=== PATIENT | female | born 2000 | race Hispanic/Latino ===

== ENCOUNTER 2024-06-28 13:23 | Emergency (ER) | payer SELFPAY ==
[~2024-06-28] VITALS: Ht 154.9 cm; Wt 51.3 kg
[~2024-06-28 13:23] MED LIST: PRED20TA3 PO
[2024-06-28 15:07] VITALS: BP 132/88; PULSE 88; RESP 20; TEMP 102.1; O2SAT 100
[2024-06-28 15:13] LABS: SARS-CoV-2, RNA, NAAT NEGATIVE SARS CoV-2 (NEGATIVE)
[2024-06-28] MEDS: acetaMINOPHEN WITH coDEINE 1 TAB TAB PO ONE (15:18)
[2024-06-28 15:25] LABS: RAPID GROUP A STREP negative (NEGATIVE)
--- NOTE | 2024-06-28 15:55 | ERN ---
General Chief Complaint: Headache Stated Complaint: EARACHE, HEADACHE, SORE THROAT Time Seen by MD: 13:31 History of Present Illness Initial Comments 23-year-old female, otherwise healthy, who presents for flu-like illness. She reports body aches, sore throat, cough, rhinorrhea and congestion x3 days. She has been taking ibuprofen and Tylenol. Multiple sick contacts, she works in his school Allergies: Coded Allergies: amoxicillin (Unverified Allergy, Unknown, 06/28/24) Home Meds Active Scripts Prednisone (Prednisone) 20 Mg Tablet, 40 MG PO DAILY for 5 Days, #10 TAB 0 Refills Prov:GERALDINE VALADEZ MD 02/19/22 Past Medical History Past Medical History: No Pertinent History Past Surgical History: None Social History Social History: Other Female( History) LMP: Jun 25, 2024 ROS Dictation Viral URI type symptoms. CONSTITUTIONAL: Fevers HEAD/FACE: No signs of trauma. EENT: No eye pain, no blurred vision, no tearing, no double vision, no ear pain, no ear discharge, no nose pain, no nasal congestion, no throat pain, no throat swelling, no mouth pain. RESPIRATORY: Cough congestion rhinorrhea CARDIOVASCULAR: No chest pain, no edema, no palpitations, no syncope. GASTROINTESTINAL/ABDOMINAL: No abdominal pain, no constipation, no diarrhea, no nausea, no vomiting. GENITOURINARY: No abnormal discharge, no dysuria, no frequent urination, no hematuria. No complaints of pain in the genitals. MUSCULOSKELETAL: No back pain, no gout, no joint pain, no joint swelling, no muscle pain, no muscle stiffness, no neck pain. INTEGUMENTARY: No change in color, no change in hair/nails, no dryness, no lesion, no lumps, no rash. NEUROLOGICAL/PSYCH: No anxiety, not depressed, no emotional problem, no headache, no numbness, no pre-existing deficit, no history of seizures, no tremors, no weakness. HEMATOLOGIC/LYMPHATIC: Not anemic, no history of blood clots, no apparent bleeding, no bruising, glands not swollen. All Systems Negative, Except as Noted. Physical Exam Physical Exam Dictation VITAL SIGNS: Reviewed. GENERAL APPEARANCE: Alert, oriented x3, no acute distres HEAD AND FACE: Non-traumatic. EYES: PERRL, pink conjunctivas, eyelid no trauma, anterior chamber clear. EARS: Pinnas intact and no signs of trauma or erythema. Ear canals clear and no discharge. TMs no erythema. NOSE: No discharge, no bleeding. OROPHARYNX: Mouth normal, teeth no caries, tongue pink. Pharynx clear, no erythema. Tonsils no exudates, no abscesses noted. Mucous membrane moist. NECK: Supple, non-tender, no thyromegaly, no masses, no JVD, no bruits. BREAST: Deferred. CHEST: No tenderness, no crepitus, no paradoxical movement, no retractions. LUNGS: Clear, well-ventilated, symmetric, no rales, no wheezing, no rhonchi, no stridor, good breath sounds bilaterally. HEART: Regular rate, regular rhythm, no murmur, no gallops. VASCULAR: No peripheral edema. ABDOMEN: Soft, positive bowel sounds, nondistended, no guarding, nontender, no rebound, no masses no hepatomegaly, no splenomegaly, no Medrano's sign, no hernias. RECTAL: Deferred. GENITAL: Deferred. NEUROLOGICAL: Normal speech, gross motor function intact, gross sensory function intact. MUSCULOSKELETAL: Neck nontender, full range of motion, back nontender, full range of motion. EXTREMITIES: Nontender, full range of motion. SKIN: Color pink, dry, no turgor, no rash, no lacerations, no abrasions, no contusions. LYMPHATICS: Deferred. Results Laboratory and Microbiology Lab and Micro Result Laboratory Tests Test 06/28/24 14:20 SARS-CoV-2, RNA, NAAT NEGATIVE SARS CoV-2 Group A Streptococcus Rapid negative (NEGATIVE) ED Course Orders Procedure Category Date Status Time Covid Rna Naat LAB 06/28/24 In Process 14:19 Influenza Type A & B, LAB 06/28/24 In Process Rapid 14:19 Rapid (Group A Strep) LAB 06/28/24 In Process 14:19 Acetaminophen With PHA 06/28/24 Complete Codeine (Tylenol-Code 15:30 Dexamethasone 4mg/Ml PHA 06/28/24 Transmitted 1ml Vial (Dexametha 16:00 Current Medications Medications (Trade) Dose Ordered Sig/Jumana Route PRN Reason Start Time Stop Time Status Last Admin Dose Admin Acetaminophen/ Codeine Phosphate (TYLenol-coDEINE TAB) 1 tab ONCE ONCE PO 06/28/24 15:30 06/28/24 15:31 DC 06/28/24 15:18 Vital Signs Date Time Temp Pulse Resp B/P (MAP) Pulse Ox O2 Delivery O2 Flow Rate FiO2 06/28/24 15:07 102.0 88 20 132/88 100 Room Air* 0 21 06/28/24 14:15 101.1 103 18 137/94 99 Room Air 0 DX & DISP Disposition: Discharge Departure Impression: Primary Impression: Viral URI Condition: Stable Additional Instructions: Your symptoms are consistent with a viral upper respiratory infection, or the common cold. This does not require antibiotics. Alternate Tylenol (650 mg) and ibuprofen (600 mg) every4 hours for fever. You received a dose of steroids here in the ER. This is an anti-inflammatory medicine in the lasted about48 hours in your system. Drink plenty of liquids. Gatorade as good choice. Eat a healthy diet of fruits and vegetables for good nutrition while you are healing. Please follow up with your primary doctor in48 hours for re-evaluation if you continue with symptoms. Please return to the emergency department if you have any concerns. Referrals: SELF,REFERRAL (PCP) JASS EMANUEL DO Jun 28, 2024 15:55
[2024-06-28] MEDS: dexaMETHasone SOD PHOSPHATE 4 MG/ML 1ML VIAL IM ONE (16:00)
[2024-06-28 16:03] LABS: INFLUENZA TYPE A Negative For Type A (NEGATIVE); INFLUENZA TYPE B Negative For Type B (NEGATIVE)
== END 2024-06-28 16:05 | disposition home or self-care (01) ==
LOC: EDH 13:23
DX: J06.9 Acute upper respiratory infection, unspecified (principal); B97.89 Other viral agents as the cause of diseases classified elsewhere; Z79.52 Long term (current) use of systemic steroids; Z88.0 Allergy status to penicillin; Z20.822 Contact with and (suspected) exposure to COVID-19
CPT/HCPCS: 99283; 87635; 87880; 87804 ×2; 96372; J1100